=== PATIENT | male | born 2000 | race African-American/Black ===

== ENCOUNTER 2020-04-11 22:51 | Emergency (ER) | payer OTHER ==
[~2020-04-11 22:51] MED LIST: CARAFATE1 G1 PO; NAPROXEN500 MG PO; PEPCID AC20 MG PO
[2020-04-11 23:52] LABS: BASOPHIL 0.3 % (0-2); EOSINOPHIL 1.7 % (0-5); HCT 46.8 % (42.0-52.0); HGB 15.1 g/dl (13.2-18.0); LYMPHOCYTE 31.9 % (15-48); MCH 29.6 pg (25.0-31.0); MCHC 32.3 g/dL (32.0-36.0); MCV 91.8 fL (78.0-100.0); MONOCYTE 5.4 % (0-12); MPV 11.3 fL (6.0-9.5); NEUTROPHIL 60.5 % (41-80); NRBC 0; PLT 248 K/uL (150-400); RDW 13.1 % (11.5-14.0); WBC 11.5 K/uL (4.0-10.5)
[2020-04-12 00:09] LABS: ALBUMIN 3.5 g/dL (3.4-5.0); BILIRUBIN - TOTAL 0.3 mg/dL (0.2-1.0); BUN/CREAT RATIO (CALC) 14.1 RATIO; CREATININE 0.99 mg/dL (0.67-1.17); GLOBULIN (CALCULATION) 3.8 g/dL; POTASSIUM 4.1 mmol/L (3.5-5.1); TOTAL PROTEIN 7.3 g/dL (6.4-8.2); URIC ACID 8.9 mg/dL (3.5-7.2)
[2020-04-12] MEDS ORDERED: NORCO 5-325 TA1 EACH PO (00:28)
[2020-04-12] MEDS ORDERED: PEPCID AC20 MG PO (00:28)
[2020-04-12] MEDS ORDERED: INDOCIN25 MG PO (00:28)
== END 2020-04-12 00:50 | disposition home or self-care (01) ==
LOC: FER 22:51
PROVIDERS: Emergency Medicine Emergency Medical Services
DX: M10.071 Idiopathic gout, right ankle and foot (principal); F17.210 Nicotine dependence, cigarettes, uncomplicated
CPT/HCPCS: 36415; 73630; 80053; 84550; 85025; J1885; J7512

== ENCOUNTER 2020-10-06 13:03 | Emergency (ER) | payer OTHER ==
[~2020-10-06 13:03] MED LIST changes: +INDOCIN25 MG PO; +NORCO 5-325 TA1 EACH PO
== END 2020-10-06 15:28 | disposition home or self-care (01) ==
LOC: FER 13:03
DX: B34.9 Viral infection, unspecified (principal); Z20.822 Contact with and (suspected) exposure to COVID-19
CPT/HCPCS: 87880; 99284; U0002

== ENCOUNTER 2021-01-17 13:52 | Emergency (ER) | payer OTHER ==
[2021-01-17 17:05] LABS: CORONAVIRUS 2019 SARS-COV-2 NEGATIVE (NEGATIVE); INFLUENZA A NAA NEGATIVE (NEGATIVE)
[2021-01-17] MEDS ORDERED: PREDNISONE 20MG20 MG PO (18:16)
[2021-01-17] MEDS ORDERED: DOXYCYCLINE HY100 MG PO (18:16)
[2021-01-17] MEDS ORDERED: VENTOLIN HFA IN18 GM INH (18:16)
== END 2021-01-17 18:31 | disposition home or self-care (01) ==
LOC: FER 13:52
PROVIDERS: Nurse Practitioner Family
DX: J12.9 Viral pneumonia, unspecified (principal); J01.10 Acute frontal sinusitis, unspecified; F17.210 Nicotine dependence, cigarettes, uncomplicated; E66.9 Obesity, unspecified; Z20.822 Contact with and (suspected) exposure to COVID-19
CPT/HCPCS: 71046; J7512; U0002

== ENCOUNTER 2021-06-13 07:04 | Emergency (ER) | payer OTHER ==
[~2021-06-13 07:04] MED LIST changes: +DOXYCYCLINE HY100 MG PO; +PREDNISONE 20MG20 MG PO; +VENTOLIN HFA IN18 GM INH
== END 2021-06-13 08:50 | disposition home or self-care (01) ==
LOC: FER 07:04
DX: M25.561 Pain in right knee (principal); E66.9 Obesity, unspecified; Z87.891 Personal history of nicotine dependence; Z28.310 Unvaccinated for COVID-19
CPT/HCPCS: 73560